=== PATIENT | female | born 1970 | race Caucasian/White ===

== ENCOUNTER → 2017-11-19 | Outpatient (CLI) | payer BC ==
[~2017-11-19] MED LIST: ALBU90OI6 INH; PHENA200 PO; SULTRIDS PO
[2017-11-22 02:17] LABS: CHLAMYDIA TRACHOMATIS, NAA Negative (Negative); HPV 16 Negative (Negative); HPV 18 Negative (Negative); HPV OTHER HR TYPES Negative (Negative); NEISSERIA GONORRHOEAE, NAA Negative (Negative)
== END | disposition home or self-care (01) ==
LOC: LAB 10:44 → LAB SHORT 10:44
PROVIDERS: Nurse Practitioner Obstetrics & Gynecology
DX: Z01.419 Encounter for gynecological examination (general) (routine) without abnormal findings (principal); Z11.3 Encounter for screening for infections with a predominantly sexual mode of transmission
CPT/HCPCS: 87491; 87591; 87624; G0123

== ENCOUNTER → 2018-08-13 | Outpatient (CLI) | payer BC | END | disposition home or self-care (01) | LOC: LAB EV 08:12 → LAB SHORT 08:12 | DX: N39.0 Urinary tract infection, site not specified (principal) | CPT/HCPCS: 87086 ==

== ENCOUNTER → 2019-09-18 | Outpatient (CLI) | payer OTHER ==
[2019-09-22 11:07] LABS: HPV 16 Negative (Negative); HPV 18 Negative (Negative); HPV OTHER HR TYPES Positive (Negative)
== END | disposition home or self-care (01) ==
LOC: LAB 16:43 → LAB SHORT 16:43
PROVIDERS: Advanced Practice Midwife
DX: Z01.419 Encounter for gynecological examination (general) (routine) without abnormal findings (principal)
CPT/HCPCS: 87624; G0123

== ENCOUNTER → 2020-01-21 | Outpatient (CLI) | payer OTHER ==
[~2020-01-21] MED LIST changes: +IBU800 MG PO; +ONDA4 PO; +Percocet 5-3251 EACH PO; +QVAR REDIHALE10.6 G2 INH
[2020-01-21 13:41] LABS: Source, Urine Clean Catch
[2020-01-21 14:55] LABS: Appearance, Urine Hazy (Clear); Bilirubin, Urine Neg (Neg); Blood, Urine 1+ (Neg); Color, Urine Yellow (P-Yellow); Glucose Qualitative, Urine Neg (Neg); Ketones, Urine Neg (Neg); Leukocyte Esterase, Urine 1+ (Neg); Nitrite, Urine Neg (Neg); Protein, Urine Neg (Neg); Specific Gravity, Urine 1.025 (1.003-1.022); Urobilinogen, Urine NORM (Normal)
[2020-01-21 15:28] LABS: Bacteria Mod /hpf; Squamous Epithelial Cells Mod /hpf (Few)
== END | disposition home or self-care (01) ==
LOC: LAB 11:30
PROVIDERS: Obstetrics & Gynecology
DX: Z01.812 Encounter for preprocedural laboratory examination (principal)
CPT/HCPCS: 81001; 87086

== ENCOUNTER 2020-01-29 06:01 | Day surgery (SDC) | payer OTHER ==
[~2020-01-29] VITALS: Ht 170.2 cm; Wt 81.7 kg
[~2020-01-29 06:01] MED LIST changes: -IBU800 MG PO; -ONDA4 PO; -Percocet 5-3251 EACH PO; -QVAR REDIHALE10.6 G2 INH
[2020-01-29] MEDS ORDERED: QVAR REDIHALE10.6 G2 INH (11:19)
[2020-01-29] MEDS ORDERED: Percocet 5-3251 EACH PO (11:20)
[2020-01-29] MEDS ORDERED: IBU800 MG PO (11:20)
[2020-01-29] MEDS ORDERED: ONDA4 PO (11:21)
--- NOTE | 2020-01-29 11:45 | NUR ---
UP TO BATHROOM, PT WAS SL, GOT VERY NAUSEOUS ON TOILET, NO LIGHT HEADED OR DIZZYNESS, GOT A SECOND RN TO BE AT STANDBY ASSIST TO GET PT BACK IN BED. PAGED DR VARGHESE
--- NOTE | 2020-01-29 14:09 | NUR ---
GETTING DRESSED, THINKING WOULD LIKE TO GO HOME SOON, ELIER IS WORKING WAS ABLE TO EAT SOME LUNCH, HAS BEEN UP TO VOID X2, HAS DRANK MINIMAL FLUIDS BUT HOLDING DOWN WHAT SHE IS DRINKING, HAS SCRIPTS FILLED AT HOME
--- NOTE | 2020-01-29 14:30 | NUR ---
REPORT RECEIVED FROM NADEGE GONZÁLES ASSUMING CARE OF PT A THIS TIME
--- NOTE | 2020-01-29 14:49 | NUR ---
PT DISCHARGED TO HOME. DISCHARGE INSTRUCTIONS GIVEN. VERBALIZED UNDERSTANDING. WILL FOLLOW UP WITH DR. VARGHESE ON 02-09. DISCHARGED VIA WHEELCHAIR, MET FAMILY OUTSIDE OF HOSPITAL AND FAMILY MEMBERS DROVE PT HOME.
== END 2020-01-29 15:00 | disposition home or self-care (01) ==
LOC: ORSCMMR 06:01 → ORD 07:30 → BC 10:22 → SURS 13:37 → BC 13:37 → SURS 13:44 → ORSCMMR 15:00 → BC 15:00
DX: N92.1 Excessive and frequent menstruation with irregular cycle (principal); D25.9 Leiomyoma of uterus, unspecified; N84.0 Polyp of corpus uteri; N80.3 Endometriosis of pelvic peritoneum; D27.1 Benign neoplasm of left ovary; N72 Inflammatory disease of cervix uteri
CPT/HCPCS: 58573; S2900; 36415; 84703; 86850; 86900; 86901; 88307; A9270-GY; J0690; J1100; J2250; J2370; J2405; J2550; J2704; J3010; J7120